=== PATIENT | male | born 1955 | race African-American/Black ===

== ENCOUNTER 2017-11-21 20:04 | Emergency (ER) | payer OTHER ==
[~2017-11-21] VITALS: Ht 175.3 cm; Wt 95.3 kg
[2017-11-21 20:25] VITALS: BP 153/82
[2017-11-21 20:45] VITALS: BP 153/82
--- NOTE | 2017-11-21 20:55 | Emergency Room Report ---
History of Present Illness General Chief Complaint: General Complaint Source: Patient Present Illness HPI 62-year-old male, history of hypertension, presenting with episode of bradycardia. 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 Patient states that he has since then been eating and drinking well, has been feeling better. He has a watch which tracks his heart rate, he saw it go down to 57 and thought he should come to the emergency room. During that time he did not have any headache lightheadedness chest pain shortness of breath. He otherwise feels well Allergies: Coded Allergies: No Known Allergies (Unverified , 11/21/17) Patient History Past Medical History: see triage record Past Surgical History: none Pertinent Family History: none Reviewed Nursing Documentation: PMH: Agreed, PSxH: Agreed Nursing Documentation-PM Past Medical History: No History, Except For Hx Hypertension: Yes Review of Systems All Other Systems: negative except mentioned in HPI Physical Exam Vital Signs Date Time Temp Pulse Resp B/P (MAP) Pulse Ox O2 Delivery O2 Flow Rate FiO2 11/21/17 20:19 98.8 86 16 153/82 99 Room Air Sp02 EP Interpretation: reviewed, normal General Appearance: normal inspection, well appearing, no apparent distress, alert, GCS 15, non-toxic Head: normocephalic, atraumatic Eyes: bilateral eye normal inspection, bilateral eye PERRL, bilateral eye EOMI ENT: normal ENT inspection, normal pharynx, normal voice, moist mucus membranes Neck: normal inspection, full range of motion, supple Respiratory: normal inspection, lungs clear, normal breath sounds, no respiratory distress, no retraction, no wheezing, speaking full sentences, chest symmetrical Cardiovascular #1: normal inspection, regular rate, rhythm, no edema, normal capillary refill Cardiovascular #2: 2+ radial (R), 2+ radial (L) Gastrointestinal: normal inspection, non tender, soft, non-distended, no guarding Genitourinary: no CVA tenderness Musculoskeletal: normal inspection, back normal, normal range of motion, non- tender Neurologic: normal inspection, alert, oriented x3, responsive, motor strength/ tone normal, sensory intact, normal gait, speech normal Psychiatric: normal inspection, judgement/insight normal, memory normal Skin: normal inspection, normal color, no rash, warm/dry, well hydrated, normal turgor Medical Decision Making Diagnostic Impression: Primary Impression: Bradycardia Additional Impression: Encounter for generalized patient complaints ER Course 62-year-old male with episode of bradycardia Currently not bradycardic DDX: Asymptomatic episode of bradycardia Plan: EKG ER course: Patient has remained stable during ED stay. Ambulating in the emergency room, not in acute distress Disposition: Patient is to be discharged to home. Patient is instructed to follow up with their primary care doctor within 5 days. Please note that this Emergency Department Report was dictated using [employer] technology software, occasionally this can lead to erroneous entry secondary to interpretation by the dictation equipment Last Vital Signs Date Time Temp Pulse Resp B/P (MAP) Pulse Ox O2 Delivery O2 Flow Rate FiO2 11/21/17 20:45 98.8 88 16 153/82 99 Room Air Disposition: HOME, SELF-CARE Condition: Improved Referrals: NOT CHOSEN IPA/MD,REFERRING (PCP) Patient Instructions: Bradycardia Additional Instructions: please see your doctor within 1 week Rogerio Dial M.D. Nov 21, 2017 20:55
--- NOTE | 2017-11-22 21:49 | Cardiology Report ---
APPROVED REPORT EKG Measurement Heart [id number] Normal sinus rhythm Nonspecific T wave abnormality Abnormal ECG
== END 2017-11-21 20:45 | disposition home or self-care (01) ==
LOC: EMR 20:42
DX: R00.1 Bradycardia, unspecified (principal); I10 Essential (primary) hypertension
CPT/HCPCS: 93005; 99283

== ENCOUNTER 2019-01-26 19:28 | Emergency (ER) | payer OTHER ==
[~2019-01-26] VITALS: Ht 175.3 cm; Wt 95.3 kg
[2019-01-26 19:45] VITALS: BP 154/82
--- NOTE | 2019-01-26 19:45 | NUR ---
ED Nurse Note: Pt arrived ED from Home, c/o chest pain today, 03/24. Pt is A/O X 4. Vital signs stable at this time, waitng for orders.
--- NOTE | 2019-01-26 19:54 | Emergency Room Report ---
History of Present Illness General Chief Complaint: Hypertension Source: Patient Present Illness HPI Patient drank a energy drink with the creatine and is blood pressure started to fluctuate. It's starting it better but still he was concerned about being at risk for a heart attack or stroke tonight. He is on medication and his medication hasn't changed. No headache or visual changes. Not on blood thinners, no oncologic problems. No unilateral weakness or numbness. No fevers, chills, sore throat, chest pain, dyspnea, palpitations, NVD, dysuria , constipation, calf pain or edema, rashes, anxiety. Seen 11/21/17 for bradycardia. H/O athleticism with slow heart rate in past. Discharged. 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 [employer] Reviewed Nursing Documentation: PMH: Agreed; PSxH: Agreed Nursing Documentation-PMH Hx Hypertension: Yes Review of Systems All Other Systems: negative except mentioned in HPI Physical Exam Vital Signs Date Time Temp Pulse Resp B/P (MAP) Pulse Ox O2 Delivery O2 Flow Rate FiO2 01/26/19 19:34 98.2 61 20 168/83 98 Room Air Sp02 EP Interpretation: reviewed, normal General Appearance: well appearing, no apparent distress, GCS 15 Head: normocephalic, atraumatic Eyes: bilateral eye normal inspection, bilateral eye PERRL, bilateral eye EOMI ENT: moist mucus membranes Neck: supple Respiratory: lungs clear, normal breath sounds Cardiovascular #1: regular rate, rhythm, no edema Cardiovascular #2: 2+ radial (R) Gastrointestinal: normal inspection, normal bowel sounds, non tender, no mass, no bruit, non-distended Musculoskeletal: back normal, gait/station normal, normal range of motion Neurologic: alert, oriented x3, helpdesk analyst III-XII nml as tested, motor strength/tone normal, DTRs symmetric, sensory intact, cerebellar normal, normal gait, speech normal Psychiatric: mood/affect normal Skin: normal inspection, warm/dry Medical Decision Making Diagnostic Impression: Primary Impression: Hypertension Qualified Codes: I10 - Essential (primary) hypertension ER Course Patient presents with hypertension after drinking an energy drink. Is no other symptoms in his blood pressure is better controlled at this time. An EKG will be obtained and also the patient will be observed. Labs are not indicated unless blood pressure is uncontrolled. Aspirin will be administered. EKG without injury. PVC noted and discussed with patient. BP improved. Discussed findings with patient. He understands need to follow up with his MD. Patient stable for outpatient observation and treatment. EKG Diagnostic Results Rate: bradycardiac Rhythm: NSR ST Segments: no acute changes - PVC Rhythm Strip Diag. Results EP Interpretation: yes Rhythm: NSR, no PVC's, no ectopy Last Vital Signs Date Time Temp Pulse Resp B/P (MAP) Pulse Ox O2 Delivery O2 Flow Rate FiO2 01/26/19 21:02 53 16 122/54 99 Room Air 01/26/19 19:45 98.1 Status: improved Disposition: HOME, SELF-CARE Condition: Improved Alli Ruvalcaba MD Jan 26, 2019 19:54
[2019-01-26 21:02] VITALS: BP 122/54
--- NOTE | 2019-01-26 21:02 | NUR ---
ER DISCHARGE NOTE: Patient is cleared to be discharged per ERMD. Pt is aox4 on room air with stable vital signs. Pt was given dc and prescription instructions, pt was able to verbalize understanding, pt id band removed . pt is able to ambulate with steady gait. pt took all belongings.
== END 2019-01-26 21:02 | disposition home or self-care (01) ==
LOC: EMR 19:55
DX: I10 Essential (primary) hypertension (principal)
CPT/HCPCS: 93005; 99283